=== PATIENT | male | born 2005 | race Two or more races ===

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

== ENCOUNTER 2024-12-16 12:08 | Emergency (ER) | payer OTHER, SELFPAY ==
--- NOTE | ~2024-12-16 | XR_ITS ---
CLINICAL HISTORY: laceration with axe Two views of the left tibia and fibula. COMPARISON: None provided. FINDINGS: Tibia and fibula appear intact. Visualized portions of the left knee and ankle are unremarkable. No radiopaque foreign body. IMPRESSION: 1. No radiographic evidence of acute injury to the left tibia and fibula. No radiopaque foreign body. This document has been electronically signed by: Manpreet Tavarez MD on 12/16/2024 13:19:21
[2024-12-16 12:21] VITALS: BP 123/69; PULSE 89; RESP 16; TEMP 36.4; O2SAT 96; BMI 23.5
--- NOTE | 2024-12-16 12:24 | ED.GENADULT ---
HPI - General Adult General Chief complaint: Wound/Laceration Stated complaint: left leg laceration from axe needs stitches Time Seen by Provider: 12/16/24 12:38 Source: patient, family (Mother), RN notes reviewed and old records reviewed Mode of arrival: ambulatory Limitations: no limitations History of Present Illness ED Provider: Lauri HPI narrative: Patient is a 19-year-old male presenting to the emergency department with complaint of laceration to left lower leg. He states he was using an ax to chop up a down tree branch prior to arrival when he accidentally hit his left leg. Last Tdap 2015. Complains of moderate pain, denies any numbness or tingling. Bleeding controlled. complaint: laceration Onset (ago): minute(s) Related Data Previous Rx's ?Medication ?Instructions ?Recorded cyproheptadine 4 mg tablet 4 mg PO BEDTIME #30 tabs 08/12/22 Allergies Allergy/AdvReac Type Severity Reaction Status Date / Time No Known Allergies Allergy Verified 12/16/24 12:23 Review of Systems Review of Systems: as per hpi Yes all other systems are reviewed and are negative Constitutional: Constitutional: Reports as per HPI [facility] Past Medical History Medical History (Updated 12/16/24 @ 14:00 by Елена Carreon NP) Adjustment disorder Chronic abdominal pain Surgical History No pertinent past surgical history Family History Family History Mother No problems noted. Father No problems noted. Social History Social History (Updated 08/16/22 @ 13:12 by Porsche Nassar MA) Household Members: Family Both parents involved: Yes Caregiver staying overnight: No Housing: Apartment Are you a primary animal care service worker to a significant other at home: No Do you presently have visiting nurse or other home services: No 75 years or older and lives alone: No Cognitive needs: No Hearing needs: No Vision needs: No Physical Exam ED Vital Signs: Vital Signs - 24 hr 12/16/24 12:21 12/16/24 14:07 Temperature 97.5 F 97.5 F Pulse Rate 89 89 Respiratory Rate 16 16 Blood Pressure 123/69 123/69 Pulse Oximetry 96 96 Oxygen Delivery Method Room Air Room Air BMI result Body Mass Index 23.5 Vital signs have been reviewed and appear to be correct. Blood pressure normal. Heart rate normal. Respiratory rate normal. Temperature normal. Oxygen saturation normal. Const General: cooperative, healthy appearing and no acute distress Orientation/consciousness: oriented to person, oriented to place, oriented to time and patient oriented x3 Limitations: no limitations HENMT Head: Yes normocephalic and Yes atraumatic Ears: external ears normal General nose exam: Normal external nose present Face and sinus: Yes face symmetric Mouth: oropharynx normal and moist mucous membranes Throat: Yes uvula midline Eyes Pupils: Equal, round and reactive pupils present Neck Neck: Yes normal visual inspection and Yes supple Resp Effort & Inspection: normal respiratory effort and able to speak in complete sentences Auscultation: clear to auscultation bilaterally Cardio Rate: regular rate Rhythm: regular rhythm Heart sounds: S1 normal heart sound present and S2 normal heart sound present Skin General skin exam: elasticity normal and turgor normal Neuro General: oriented to person, oriented to place, oriented to time, patient oriented x3, moves all extremities, no focal motor deficits and CN's II-XI intact bilaterally Cranial nerves: Yes Equal, round and reactive pupils present Cognition (Neuro): normal cognition Extrem General: Yes full ROM, Yes no pedal edema and Yes no calf tenderness Left lower extremity: lower leg Details: laceration distal lower leg anterior Details: linear (4cm) and involving subcutaneous tissue; not contaminated Psych Mental Status: mental status grossly normal Affect: normal affect Thought process: Normal thought process present Course Course Course Narrative: RME: 19 yold male presents to the ED left wilkinson laceration caused by axe. wilkinson laceration bleeding controlled and will need stiches. no bone exposure. uptdoate with tetanus Medications Administered Discontinued Medications Generic Name Dose Route Start Last Admin Trade Name Freq PRN Reason Stop Dose Admin Acetaminophen 650 mg 12/16/24 12:33 12/16/24 12:41 Acetaminophen 325 Mg Tablet PO 12/16/24 12:34 650 mg ONCE ONE Administration Bacitracin 1 appl 12/16/24 12:51 12/16/24 12:58 Bacitracin Oint 0.9 Gm Packet TOPICAL 12/16/24 12:52 1 appl ONCE ONE Administration Protocol Diphtheria/Tetanus/Acell Pertussis 0.5 ml 12/16/24 12:51 12/16/24 12:58 Diphth,Pertus(Acell),Tet Adult 0.5 Ml Syringe IM 12/16/24 12:52 0.5 ml .ONCE ONE Administration Lidocaine HCl 10 ml 12/16/24 12:51 12/16/24 12:58 Lidocaine Hcl 1 % Mpf 5 Ml Vial INFILTRATI 12/16/24 12:52 10 ml ONCE ONE Administration Procedures Laceration Laceration 1: Site: lower extremity Side (If applicable): left Size (cm): 4 Description: linear Depth: simple, single layer Local Anesthetic: lidocaine 1% Amount of anesthesia used (mL): 6 Pre-repair: wound explored, irrigated extensively and deep structures intact Skin layer closed with: other (prolene) Size (cm): 4-0 Number of sutures: 8 Technique: simple, interrupted Medical Decision Making Medical Decision Making [facility] Narrative: Patient is a 19-year-old male presenting to the emergency department with complaint of laceration to left lower leg. On exam patient is awake, A+Ox3, VS WNL, afebrile, normal neurological exam without focal deficits, physical exam findings as above. Given reported symptoms and physical exam findings, initial differential includes but is not limited to laceration, fracture, foreign body. X-ray notable for no tibial fracture. My interpretation is in agreement with the radiologist's interpretation. Tdap updated. Laceration repaired as per procedure note. Patient tolerated procedure well. Wound care instructions and return precautions discussed at bedside. Patient verbalized understanding of and agreement with plan. Differential Diagnosis Differential Diagnoses: The differential diagnosis associated with the presentation includes As per [facility] Admission/Observation Consideration of admission/observation: Escalation of care including admission/observation considered Patient would have been admitted to the hospital had their work up had any findings where hospital admission was appropriate and their clinical presentation warranted hospital admission. Independent Interpretation I performed an independent interpretation of an: Plain X-Ray Interpretation: No fracture of left tibia on x-ray Radiology Impression Discussion of test interpretation with radiology: I have reviewed the radiologist's reading. Radiologist Impression: Two views of the left tibia and fibula. COMPARISON: None provided. FINDINGS: Tibia and fibula appear intact. Visualized portions of the left knee and ankle are unremarkable. No radiopaque foreign body. IMPRESSION: 1. No radiographic evidence of acute injury to the left tibia and fibula. No radiopaque foreign body. External Record Review External record reviewed: Inpatient record, Office record and Outpatient record Discharge Plan Discharge Clinical Impression: Laceration of left lower leg Qualifiers: Encounter type: initial encounter Qualified Code(s): S81.812A - Laceration without foreign body, left lower leg, initial encounter Patient Disposition: Home, Self-Care Instructions: Care For Your Stitches (DC), Laceration (DC), Stitches Removal (ED) Additional Instructions: You have been evaluated in the emergency department today for a laceration to your left lower leg. Your laceration was repaired in the emergency department with sutures (8). Please keep the area surrounding the laceration clean and dry and keep dressing in place for the next 24 hours. After that change the dressing and assess the wound daily. Do not submerge the wound in water until the stitches have been removed and the wound has fully healed (no washing dishes, swimming, hot tubs, etc. and ESPECIALLY no outdoor water). Keep the area out of direct sunlight for the next 6 months to help prevent scarring. You should have the sutures removed in 7-10 days. If you develop fever, redness, swelling at the site of your laceration, or thick yellow drainage please come back to the ER for a wound check. Prescriptions: No Action cyproheptadine 4 mg tablet 4 mg PO BEDTIME Qty: 30 0RF Stand Alone Forms: Work/School Release Interventions: ED Discharge Assessment Last Done: 12/16/24 14:07 Discharge Date/Time: 12/16/24 14:07 Print Language: Iranian
[2024-12-16] MEDS: Acetaminophen 325 MG TABLET 650 MG PO (12:41)
[2024-12-16] MEDS: Lidocaine HCl 1 % MPF 5 ML VIAL 10 ML INFILTRATI (12:58)
[2024-12-16] MEDS: Diphth,Pertus(ACell),Tet Adult 0.5 ML SYRINGE IM (12:58)
[2024-12-16] MEDS: Bacitracin Oint 0.9 GM PACKET 1 APPL TOPICAL (12:58)
[2024-12-16 14:07] VITALS: BP 123/69; PULSE 89; RESP 16; TEMP 36.4; O2SAT 96
== END 2024-12-16 14:07 | disposition home or self-care (01) ==
PROVIDERS: Emergency Provider Emergency Medicine
DX: S81.812A Laceration without foreign body, left lower leg, initial encounter (principal); M79.605 Pain in left leg; X58.XXXA Exposure to other specified factors, initial encounter; W26.9XXA Contact with unspecified sharp object(s), initial encounter; Y93.9 Activity, unspecified; Y92.9 Unspecified place or not applicable; Y99.8 Other external cause status; Z23 Encounter for immunization
CPT/HCPCS: 12032; 73590; 90471; 90715; 99283; 99284; J2003

== ENCOUNTER → 2024-12-16 12:51 | Outpatient (BNV) | payer OTHER, SELFPAY | PROVIDERS: Emergency Provider Emergency Medicine; Visit Provider Radiology Diagnostic Radiology | DX: S81.812A Laceration without foreign body, left lower leg, initial encounter (principal) | CPT/HCPCS: 73590 ==

== ENCOUNTER 2024-12-27 19:05 | Emergency (ER) | payer OTHER, SELFPAY ==
[2024-12-27 19:06] VITALS: BP 134/71; PULSE 78; RESP 16; TEMP 36.2; O2SAT 98; BMI 23.5
--- NOTE | 2024-12-27 19:25 | ED.GENADULT ---
HPI - General Adult General Chief complaint: Wound/Laceration Stated complaint: stitiches removed Time Seen by Provider: 12/27/24 19:13 Source: patient Mode of arrival: ambulatory Limitations: no limitations History of Present Illness ED Provider: Evangelist Sandhu HPI narrative: 19-year-old male presents presents to ED for left wilkinson suture removal. Patient had sutures placed December 16. Patient denies any fever, chills, redness, pus discharge or foul odor. Patient states no physical complaints Related Data Previous Rx's ?Medication ?Instructions ?Recorded cyproheptadine 4 mg tablet 4 mg PO BEDTIME #30 tabs 08/12/22 Allergies Allergy/AdvReac Type Severity Reaction Status Date / Time No Known Allergies Allergy Verified 12/27/24 19:08 Review of Systems Review of Systems: suture removal Yes all other systems are reviewed and are negative [facility] Past Medical History Medical History (Updated 12/28/24 @ 00:02 by Galindo Boyle) Adjustment disorder Chronic abdominal pain Surgical History No pertinent past surgical history Family History Family History Mother No problems noted. Father No problems noted. Social History Social History (Updated 08/16/22 @ 13:12 by Porsche Nassar MA) Household Members: Family Housing: Apartment Are you a primary home health care worker to a significant other at home: No Do you presently have visiting nurse or other home services: No Advance Directives: No Advance Directives Information Provided: No Do you have a plan to hurt others: No Plan Cognitive needs: No Hearing needs: No Vision needs: No Physical Exam ED Vital Signs: Vital Signs - 24 hr 12/27/24 19:06 12/27/24 19:42 Temperature 97.2 F 97.2 F Pulse Rate 78 78 Respiratory Rate 16 16 Blood Pressure 134/71 134/71 Pulse Oximetry 98 98 Oxygen Delivery Method Room Air Room Air BMI result Body Mass Index 23.5 Const General: cooperative, healthy appearing, comfortable, no acute distress, well developed, alert, awake and Physically active Orientation/consciousness: patient oriented x3 HENMT Head: Yes normal to inspection, Yes No palpable skull fracture present, Yes normocephalic and Yes atraumatic Eyes General: appearance normal, both eyes and all related structures Neck Neck: Yes normal visual inspection, Yes full ROM, Yes no lymphadenopathy, Yes no meningeal signs, Yes trachea midline, Yes supple, No anterior neck swelling and No tender Chest Chest palpation & inspection: normal inspection of the chest and normal palpation of entire chest wall Resp Effort & Inspection: normal respiratory effort and able to speak in complete sentences Auscultation: clear to auscultation bilaterally Cardio Jugular venous distension: no JVD Heart sounds: S1 normal heart sound present and S2 normal heart sound present GI Inspection: Yes normal to inspection Palpation (GI): Soft to palpation, not firm, nontender, no guarding and not rigid General: Yes no CVA tenderness Back/Spine/Pelvis Back: no CVA tenderness and No back tenderness Neuro General: patient oriented x3, gait normal, tone normal, moves all extremities, Normal light touch and pain sensation, no meningeal signs, no focal motor deficits, CN's II-XI intact bilaterally and normal sensation to monofilament Extrem General: Yes normal to inspection, Yes full ROM and Yes capillary refill normal Upper/lower leg/hip images:  1. Eight sutures wound healing correctly. Negative for any erythema, foul odor, pus discharge, ecchymosis, crepitus, or deformity. Rest of extremity normal. Motor/neuro/vascular exam intact. Psych Appearance: grossly normal, well kempt and not disheveled Medical Decision Making Medical Decision Making [facility] Narrative: 19-year-old male presents to ED for suture removal. Sutures are healthy. Sutures removed. Cleaned with normal saline Betadine iodine. It sutures removed. No signs of infection. Patient explained worrisome signs and informed to return to the ED immediately. Differential Diagnosis Differential Diagnoses: The differential diagnosis associated with the presentation includes (Suture removal) Admission/Observation Consideration of admission/observation: Escalation of care including admission/observation considered Independent Historian Clinical information obtained from an independent historian. History obtained from or confirmed by: Other (Patient i) Discharge Plan Discharge Clinical Impression: Encounter for removal of sutures Patient Disposition: Home, Self-Care Instructions: Stitches Removal (ED) Additional Instructions: Return to the ED immediately for any swelling, redness, bluish black discoloration, fever, chills, or any other concerning symptoms. Recommend follow up with primary care provider. Prescriptions: No Action cyproheptadine 4 mg tablet 4 mg PO BEDTIME Qty: 30 0RF Interventions: ED Discharge Assessment Last Done: 12/27/24 19:42 Discharge Date/Time: 12/27/24 19:42 Print Language: Romanian
[2024-12-27 19:42] VITALS: BP 134/71; PULSE 78; RESP 16; TEMP 36.2; O2SAT 98
== END 2024-12-27 19:42 | disposition home or self-care (01) ==
PROVIDERS: Emergency Provider Emergency Medicine
DX: Z48.02 Encounter for removal of sutures (principal)
CPT/HCPCS: 99282

== ENCOUNTER 2025-03-06 13:56 | Emergency (ER) | payer OTHER, SELFPAY ==
--- NOTE | 2025-03-06 13:56 | ECG_ITS ---
Test Reason : CHEST PAIN Blood Pressure : */* mmHG Vent. Rate : 83 BPM Atrial Rate : 83 BPM P-R Int : 130 ms QRS Dur : 84 ms QT Int : 332 ms P-R-T Axes : 27 42 17 degrees QTcB Int : 390 ms Normal sinus rhythm Normal ECG No previous ECGs available Referred By: Gina Ferguson Electronically Signed By: SINA DORSEY MD
[2025-03-06 14:01] VITALS: BP 132/62; PULSE 85; RESP 18; TEMP 36.6; O2SAT 98; BMI 23.5
--- NOTE | 2025-03-06 14:02 | ED_ITS ---
HPI - Chest Pain General Chief Complaint: Chest Pain Stated Complaint: cp Time Seen by Provider: 03/06/25 15:45 Source: patient Mode of arrival: ambulatory History of Present Illness ED Provider: Mechelle MAR narrative: 19-year-old male with history of intermittent, short episodes of sharp central left chest pain not associated with dizziness/diaphoresis or nausea or vomiting, does not change with exertion status and does not change with position, no history of fevers, chills, nausea or vomiting, family history is negative for early cardiac . Patient is completely asymptomatic at this time. Related Data Previous Rx's ?Medication ?Instructions ?Recorded cyproheptadine 4 mg tablet 4 mg PO BEDTIME #30 tabs Allergies Allergy/AdvReac Type Severity Reaction Status Date / Time No Known Allergies Allergy Verified 03/06/25 14:02 Review of Systems 2 Review of Systems: Pertinent positives and negatives as stated in [facility] Past Medical History Attestation statement: The following information was validated with the patient. Source: nursing notes reviewed Medical History (Updated 03/06/25 @ 16:36 by Aliya Min MD) Adjustment disorder Chronic abdominal pain Surgical History No pertinent past surgical history Family History Family History Mother No problems noted. Father No problems noted. Social History Social History (Updated 08/16/22 @ 13:12 by Porsche Nassar MA) Household Members: Family Housing: Apartment Are you a primary director of primary care to a significant other at home: No Do you presently have visiting nurse or other home services: No Advance Directives: No Advance Directives Information Provided: Yes Do you have a plan to hurt others: No Plan Cognitive needs: No Hearing needs: No Vision needs: No Physical Exam 2 Exam: Exam: VITAL SIGNS: Reviewed. GENERAL: Well developed, well nourished, in no acute distress. HEAD: Normocephalic/atraumatic EYES: PERRLA, EOMI EARS: Ext canals without abnormality NOSE: Nares patent bilateral OROPHARYNX: no oral lesions noted, posterior pharynx clear NECK: Supple, no adenopathy LUNGS: Normal breath sounds. No adventitious sounds or accessory muscle use. CARDIOVASCULAR: Regular rate and rhythm without noted murmurs ABDOMEN: Soft, non-tender, non-distended with bowel sounds. MUSCULOSKELETAL: No tenderness, deformities, or effusions noted on gross inspection. EXTREMITIES: No cyanosis, clubbing or edema. SKIN: Inspection of the skin reveals no rashes NEUROLOGIC: Alert and oriented x 4. Strength and sensation to light touch were grossly intact x 4. Vital Signs: Vital Signs: Last Vital Signs Temp 98.2 F 03/06/25 16:20 Pulse 94 03/06/25 16:20 Resp 18 03/06/25 16:20 BP 124/67 03/06/25 16:20 Pulse Ox 99 03/06/25 16:20 O2 Del Method Room Air 03/06/25 16:20 BMI result Body Mass Index 23.5 Course Course Course Narrative: This is a Rapid Medical Examination (RME) performed by Tristan Ferguson PA-C in triage. Full HPI, ROS, assessment and treatment plan per primary provider in the Main ED. Hx: 19 yo M here w/ 11/03 chest pain that began approx 15 mins ago while at work. reports cp intermittent x a few months. BP recently elevated. Plan: labs, ekg Medical Decision Making Medical Decision Making [facility] Narrative: 19-year-old male with history and clinical presentation, DD DX: Musculoskeletal, very low clinical suspicion for ACS or pulmonary, no clinical suspicion for pericarditis/myocarditis, patient is otherwise well appearing/nontoxic and otherwise hemodynamically stable and completely asymptomatic at this time. My interpretation of the EKG: Sinus rhythm, HR-83, no STEMI, WI/QRS/QTC/QTC is otherwise within normal limits. There are no concerning rhythm morphologies. 1630: I reviewed interpreted all investigations and there is no leukocytosis, anemia, or thrombocytopenia. There is no demonstrate LEANNE/electrolyte/liver enzyme derangements. Pain high sensitivity troponin is undetectable. Workup is otherwise reassuring, all results and findings discussed with the patient at bedside and he is otherwise discharged home in stable condition. Differential Diagnosis Differential Diagnoses: The differential diagnosis associated with the presentation includes See above Admission/Observation Consideration of admission/observation: Escalation of care including admission/observation considered See above Lab Data [facility] Lab Attestation statement: I reviewed the patient's lab results. See above 03/06/25 14:23 03/06/25 14:23 Labs: Lab Results 09/10/25 Range/Units 14:23 WBC 7.0 (4.8-10.8) X10*3/uL RBC 4.76 (4.60-5.80) X10*6/uL Hgb 14.6 (14.0-18.0) g/dl Hct 40.8 L (42.0-52.0) % MCV 85.7 (80.0-98.0) fL MCH 30.7 (27.0-33.0) pg MCHC 35.8 (31.0-36.0) g/dl RDW 11.7 (11.0-16.0) % Plt Count 267 (160-400) X10*3/uL MPV 8.3 L (9.4-12.4) fL Immature Gran % (Auto) 0.3 (0.0-0.4) % Neut % (Auto) 61.0 (45-73) % Lymph % (Auto) 25.9 (20-40) % [place] % (Auto) 10.7 (2-11) % Eos % (Auto) 1.4 (0-4) % Baso % (Auto) 0.7 (0-2) % Lymph # (Auto) 1.8 (1.2-4.9) X10*3/uL [place] # (Auto) 0.8 (0.1-1.2) X10*3/uL Eos # (Auto) 0.1 (0.0-0.4) X10*3/uL Baso # (Auto) 0.1 (0.0-0.2) X10*3/uL Abs Immat Gran (auto) 0.02 (0.00-0.03) X10*3/uL Absolute Neuts (auto) 4.3 (2.0-8.3) x10*3/uL Absolute Nucleated RBC 0.000 (0.0-0.012) X10*3/uL Nucleated RBC % (auto) 0.0 (0.0-0.2) /100WBC Sodium 140 (135-145) mmol/L Potassium 4.4 (3.3-5.1) mmol/L Chloride 103 (96-108) mmol/L Carbon Dioxide 29 (22-29) mmol/L Anion Gap 12 (12-20) BUN 22 H (9-16) mg/dL Creatinine 0.97 (0.5-1.4) mg/dL Estim Creat Clear Calc 113.5 Estimated GFR > 60 Random Glucose 96 (60-115) mg/dL Calcium 9.4 D (8.4-10.2) mg/dL Magnesium 2.2 (1.6-2.6) mg/dL Total Bilirubin 0.7 (0.0-1.0) mg/dL AST 30 (5-37) U/L ALT 31 (0-40) U/L Alkaline Phosphatase 68 (39-117) U/L Troponin I High Sens < 2.7 (<3.5-35.0) ng/L Total Protein 7.2 (6.5-8.0) g/dL Albumin 4.9 (3.5-5.0) g/dL Lipase 15 (8-78) U/L ABG Data Attestation ABG: I personally reviewed and interpreted this ABG as follows: Interpretation: See above Independent Interpretation I performed an independent interpretation of an: EKG Interpretation: See above Discharge Plan Discharge Clinical Impression: Atypical chest pain Patient Disposition: Home, Self-Care Instructions: Chest Pain (ED) Additional Instructions: Your workup was reassuring today. If at anytime you have associated symptoms to include dizziness or sweating or feeling short of breath you should come back to the emergency room. Prescriptions: No Action cyproheptadine 4 mg tablet 4 mg PO BEDTIME Qty: 30 0RF Print Language: Marshallese
[2025-03-06 14:28] LABS: MANUAL DIFF FLAG NO
[2025-03-06 14:29] LABS: Hematocrit 40.8 % (42.0-52.0); Hemoglobin 14.6 g/dl (14.0-18.0); Imm Gran Abs Auto 0.02 X10*3/uL (0.00-0.03); Imm Gran Pct Auto 0.3 % (0.0-0.4); Lymphocytes Absolute Auto 1.8 X10*3/uL (1.2-4.9); Mean Corpuscular HGB Conc 35.8 g/dl (31.0-36.0); Mean Corpuscular Hemoglobin 30.7 pg (27.0-33.0); Mean Corpuscular Volume 85.7 fL (80.0-98.0); NRBC Abs Auto 0.000 X10*3/uL (0.0-0.012); NRBC Pct Auto 0.0 /100WBC (0.0-0.2); Platelet Count 267 X10*3/uL (160-400); Red Blood Count 4.76 X10*6/uL (4.60-5.80); White Blood Count 7.0 X10*3/uL (4.8-10.8)
[2025-03-06 14:51] LABS: Alanine Aminotransferase 31 U/L (0-40); Albumin Level 4.9 g/dL (3.5-5.0); Alkaline Phosphatase 68 U/L (39-117); Anion Gap 12 (12-20); Aspartate Amino Transferase 30 U/L (5-37); Blood Urea Nitrogen 22 mg/dL (9-16); Calcium 9.4 mg/dL (8.4-10.2); Carbon Dioxide 29 mmol/L (22-29); Chloride 103 mmol/L (96-108); Creatinine Clr Calc Pharmacy 113.5; Estimated Glomerular Filt Rate > 60; Lipase 15 U/L (8-78); Magnesium 2.2 mg/dL (1.6-2.6); Potassium 4.4 mmol/L (3.3-5.1); Sodium 140 mmol/L (135-145); Total Protein 7.2 g/dL (6.5-8.0)
[2025-03-06 14:56] LABS: Troponin-I High Sensitivity < 2.7 ng/L (<3.5-35.0)
[2025-03-06 16:20] VITALS: BP 124/67; PULSE 94; RESP 18; TEMP 36.8; O2SAT 99
== END 2025-03-06 16:56 | disposition home or self-care (01) ==
PROVIDERS: Physician Assistant Medical; Emergency Provider Student in an Organized Health Care Education/Training Program
DX: R07.89 Other chest pain (principal); R07.9 Chest pain, unspecified
CPT/HCPCS: 36415; 80053; 83690; 83735; 84484; 85025; 93005; 99283

== ENCOUNTER → 2025-03-06 13:56 | Outpatient (BNV) | payer OTHER, SELFPAY | PROVIDERS: Emergency Provider Student in an Organized Health Care Education/Training Program; Visit Provider Internal Medicine Cardiovascular Disease | DX: R07.89 Other chest pain (principal) | CPT/HCPCS: 93010 ==

== ENCOUNTER 2025-05-27 12:56 | Outpatient (REF) | payer OTHER, SELFPAY ==
[2025-05-27 14:10] LABS: MANUAL DIFF FLAG NO
[2025-05-27 14:42] LABS: Hematocrit 44.7 % (42.0-52.0); Hemoglobin 15.2 g/dl (14.0-18.0); Imm Gran Abs Auto 0.04 X10*3/uL (0.00-0.03); Imm Gran Pct Auto 0.5 % (0.0-0.4); Lymphocytes Absolute Auto 0.5 X10*3/uL (1.2-4.9); Mean Corpuscular HGB Conc 34.0 g/dl (31.0-36.0); Mean Corpuscular Hemoglobin 30.0 pg (27.0-33.0); Mean Corpuscular Volume 88.2 fL (80.0-98.0); NRBC Abs Auto 0.000 X10*3/uL (0.0-0.012); NRBC Pct Auto 0.0 /100WBC (0.0-0.2); Platelet Count 233 X10*3/uL (160-400); Red Blood Count 5.07 X10*6/uL (4.60-5.80); White Blood Count 7.9 X10*3/uL (4.8-10.8)
[2025-05-27 14:55] LABS: Resp Syncy Virus RNA Qual PCR NEGATIVE (Negative); SARS COV2 PCR INHOUSE NEGATIVE (Negative)
[2025-05-27 15:07] LABS: Appearance Urine Clear; Glucose Urine UA Negative (Negative); PH 6.0 (5.0-9.0); Specific Gravity - Urine 1.025 (1.005-1.025)
[2025-05-27 15:27] LABS: Alanine Aminotransferase 48 U/L (0-40); Albumin Level 5.0 g/dL (3.5-5.0); Alkaline Phosphatase 71 U/L (39-117); Anion Gap 12 (12-20); Aspartate Amino Transferase 35 U/L (5-37); Blood Urea Nitrogen 14 mg/dL (9-16); Calcium 9.3 mg/dL (8.4-10.2); Carbon Dioxide 27 mmol/L (22-29); Chloride 99 mmol/L (96-108); Cholesterol 137 mg/dL (<200); Estimated Glomerular Filt Rate > 60; HDL Cholesterol 52 mg/dL (>40); Potassium 4.0 mmol/L (3.3-5.1); Sodium 134 mmol/L (135-145); Total Protein 7.4 g/dL (6.5-8.0); Triglycerides 34 mg/dL (<150)
== END 2025-05-27 12:57 | disposition home or self-care (01) ==
LOC: HO.LAB 12:56
DX: Z76.89 Persons encountering health services in other specified circumstances (principal); J06.9 Acute upper respiratory infection, unspecified; R23.4 Changes in skin texture; R09.89 Other specified symptoms and signs involving the circulatory and respiratory systems
CPT/HCPCS: 80053; 80061; 81003; 82306; 84443; 85025; 87637; 99202

== ENCOUNTER 2025-05-27 12:56 | Outpatient (AMB) | payer OTHER, SELFPAY ==
[2025-05-27 13:02] VITALS: BP 104/58; PULSE 113; RESP 18; TEMP 38.3; O2SAT 100; BMI 24.6
--- NOTE | 2025-05-27 13:02 | MHC.PC.OV ---
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 Tower Control Operator Required: No Accompanied by: Self / Same As Patient Allergies No Known Allergies Allergy (Verified 05/27/25 13:23) Medication List - Last Reconciled 05/27/25 by AGUSTIN Hebert No Known Home Meds Tobacco use date assessed: 05/27/25 Dental Screening Dental Screen Date: 05/27/25 Did you have a dental visit in the last 12 months?: Yes Did you have a dental problem in the last 6 months where you did not have access to dental care?: No Was dental information given to patient?: Patient has dentist 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 No discoloration or swelling in the area. Patient reports that last Tuesday, his 2-year-old sister had a cough and he thinks he got sick from her He reports that Tuesday these symptoms got worse and today was barely able to get out of bed. He reports that he has been running a fever, his throat has been feeling scratchy, he had nonproductive cough body aches and felt drowsy. Patient reports taking ibuprofen for the temperature yesterday but nothing so far today. His temp in office was 100.9 F. The patient reports shortness of breath but mild in nature, however, he does report an episode where he had a really bad cough and got short of breath to the point of feeling like he was unable to catch his breath. Explained to the patient that doing coughing episodes if he is not taking good breaths, his oxygen we will be decreased and cause him to feel breathless. The patient also reports that his cough is worse during the day. [facility] Medical History Adjustment disorder Chronic abdominal pain Surgical History No pertinent past surgical history Family History Mother No problems noted. Father No problems noted. Social History Household Members: Family Both parents involved: Yes Caregiver staying overnight: No Housing: Apartment Are you a primary animal daycare provider to a significant other at home: No Do you presently have visiting nurse or other home services: No 75 years or older and lives alone: No Cognitive needs: No Hearing needs: No Vision needs: No Questionnaire MARIO-7 AMB Questionnaire MARIO-7 Date MARIO - 7 assessed: 03/23/22 Source: Developed by Drs. Kiko Long, Danitza Bennett, Americo Pelaez and colleagues, with an educational jaye from [employer]. Review of Systems Const Reports body aches, Reports fever(s), Denies headache(s) and Reports lethargy Eyes Denies loss of vision ENT Denies vertigo, Denies dizziness, Denies headache(s), Reports nasal congestion, Reports nasal discharge, Denies sore throat and Reports other (Scratchy throat) Card Denies chest pain, Denies leg edema, Denies lightheadedness and Reports dyspnea (Intermittently-mild) Resp Reports cough, Denies hemoptysis, Reports dyspnea (Intermittently-mild) and Denies wheezing GI Denies abdominal pain, Denies melena, Denies constipation, Denies diarrhea and Denies vomiting Denies dysuria, Denies urinary frequency and Denies urinary urgency Musc Denies arthralgias, Denies joint swelling, Denies numbness and Denies tingling Skin/Breast Reports other (Small indented areas) Neuro Denies Abnormal speech present, Denies behavioral changes, Denies vertigo, Denies dizziness, Denies headache(s), Denies loss of vision, Denies memory loss, Denies numbness and Denies tingling Psych Denies anxiety, Denies behavioral changes, Denies depression, Denies memory loss and Denies panic attacks Joe/Lymph Denies easy bleeding and Denies easy bruising Aller/Immun Denies wheezing Physical exam (Primary Care) Vital Signs: Last Vital Signs Temp 100.9 F H 05/27/25 13:02 Pulse 113 H 05/27/25 13:02 Resp 18 05/27/25 13:02 BP 104/58 L 05/27/25 13:02 Pulse Ox 100 05/27/25 13:02 Oxygen Delivery Method Room Air 05/27/25 13:02 BMI result Body Mass Index 24.6 Const General: healthy appearing, no acute distress, alert and awake Nutritional Appearance: well nourished Orientation/consciousness: oriented to person, oriented to place and oriented to time HENMT Ears: TM's normal bilaterally General nose exam: Abnormal mucous membranes and turbinates present boggy bilateral and erythematous bilateral and Nasal discharge present clear bilateral Throat: Yes posterior oropharynx normal Eyes Conjunctivae: conjunctivae normal Sclerae: sclerae normal Pupils: Equal, round and reactive pupils present Neck Neck: Yes no lymphadenopathy and Yes no JVD Thyroid: Thyroid normal Carotids: no bruits Resp Effort & Inspection: normal respiratory effort and not tachypneic Auscultation: no crackles, no rales, no rhonchi and no wheezes Cardio Rate: regular rate Rhythm: regular rhythm Heart sounds: no murmurs and normal S1 and S2 GI Palpation (GI): Soft to palpation, nontender, no hepatomegaly and no splenomegaly Auscultation: normal bowel sounds General: Yes no CVA tenderness Back/Spine/Pelvis Back: no CVA tenderness Skin General skin exam: dry skin and scars (Two small indented areas 1 on left upper arm and other on left upper chest) Neuro General: oriented to person, oriented to place and oriented to time Cranial nerves: Yes Equal, round and reactive pupils present Speech: No Abnormal speech present Gait exam (Neuro): Normal gait present Motor exam (neuro): no tremor noted Extrem Right upper extremity: full ROM Left upper extremity: full ROM Right lower extremity: full ROM; no edema Left lower extremity: full ROM; no edema Psych Mental Status: mental status grossly normal Speech and movement: Normal speech and movement present Affect: normal affect Attitude: cooperative Thought process: Normal thought process present Coding Level of Care Code New Pt Level 4 (86032) Diagnoses Upper respiratory tract infection, unspecified type J06.9 URI type: unspecified URI Changes in skin texture R23.4 Encounter to establish care with new provider Z76.89 Time Spent (min) 34 Assessment & Plan Assessment & Plan (1) Upper respiratory infection: Code(s): J06.9 - Acute upper respiratory infection, unspecified Category: Medical Qualifiers: URI type: unspecified URI Qualified Code(s): J06.9 - Acute upper respiratory infection, unspecified Plan: Respiratory panel ordered to further evaluate Start benzonatate 100 mg b.i.d. p.r.n. for 14 days Start fluticasone propionate 50 mcg/actuation 2 sprays intranasally daily Start loratadine 10 mg daily p.r.n. Increase fluid intake (2) Changes in skin texture: Code(s): R23.4 - Changes in skin texture Category: Medical Plan: Benign appearing, 2 small indented areas on skin, 1 on the left upper arm a 1 on the left upper chest No intervention needed (3) Encounter to establish care with new provider: Code(s): Z76.89 - Persons encountering health services in other specified circumstances Category: Medical Plan: Labs ordered for the patient to complete a week before returning for annual physical in 7 weeks Orders: Orders Lipid Panel Today Z00.00 - Encounter for general adult medical examination without abnormal findings SARS-CoV2/FLU/RSV Today R09.89 - Other specified symptoms and signs involving the circulatory and respiratory systems Complete Blood Count Auto Diff Today Z00.00 - Encounter for general adult medical examination without abnormal findings Comprehensive [place]. Panel Fast Today Z00.00 - Encounter for general adult medical examination without abnormal findings Vitamin D 25-OH Total Today Z00.00 - Encounter for general adult medical examination without abnormal findings UA CC w/rflx Micro + Cult Today Z00.00 - Encounter for general adult medical examination without abnormal findings TSH reflex Free T4 Today Z00.00 - Encounter for general adult medical examination without abnormal findings Medications: New benzonatate 100 mg PO BID PRN 30 caps 0RF cough 14 days fluticasone propionate 50 mcg/actuation (Allergy Relief (fluticasone)) administer into each nostril 2 sprays intranasal DAILY 16 grams 0RF loratadine (Claritin) 10 mg PO DAILY PRN 30 tabs 0RF allergy symptoms
== END 2025-05-27 16:14 | disposition home or self-care (01) ==
LOC: HO.HMCH 12:57
DX: J06.9 Acute upper respiratory infection, unspecified (principal); R23.4 Changes in skin texture; Z76.89 Persons encountering health services in other specified circumstances

== ENCOUNTER 2025-05-30 11:18 | Emergency (ER) | payer OTHER, SELFPAY ==
--- NOTE | ~2025-05-30 | XR_ITS ---
EXAMINATION: XR CHEST CLINICAL INFORMATION: Pnuemonia? coughing COMPARISON: None available. TECHNIQUE: 2 views of the chest were obtained. FINDINGS: Lungs: No focal consolidation or evidence of pulmonary edema. Pleura: No pleural effusion or pneumothorax. Heart/Mediastinum: Cardiomediastinal silhouette is within normal limits. Bones: No acute findings. XR/XR chest 2V IMPRESSION: No acute cardiopulmonary process. Electronically signed by: Hardik Samuels MD 05/30/2025 12:07 PM [facility]
[2025-05-30 11:20] VITALS: BP 124/78; PULSE 87; RESP 18; TEMP 36.7; O2SAT 98; BMI 23.6
--- NOTE | 2025-05-30 11:24 | ED.GENADULT ---
HPI - General Adult General Chief complaint: Upper Respiratory Symptoms Stated complaint: Shortness Of Breath Time Seen by Provider: 05/30/25 11:47 Source: patient Mode of arrival: ambulatory Limitations: no limitations History of Present Illness ED Provider: DR. Adamson HPI narrative: 20-year-old male otherwise healthy recently diagnosed with flu A returned today for evaluation of increased coughing and shortness of breath with persistent fever, persistent of body ache and sore throat. No lower extremity swelling or tenderness, no recent travel, no risk for PE or DVT. Related Data Previous Rx's ?Medication ?Instructions ?Recorded benzonatate 100 mg capsule 100 mg PO BID PRN cough 14 days 05/27/25 #30 caps fluticasone propionate 50 2 spray intranasal DAILY #16 grams 05/27/25 mcg/actuation nasal spray,suspension (Allergy Relief (fluticasone)) loratadine 10 mg tablet (Claritin) 10 mg PO DAILY PRN allergy 05/27/25 symptoms #30 tabs albuterol sulfate 90 mcg/actuation 1 inh inhalation QID PRN shortness 05/30/25 aerosol inhaler (Ventolin HFA) of breath or wheezing #8.5 grams prednisone 20 mg tablet 20 mg PO BID #10 tabs 05/30/25 Allergies Allergy/AdvReac Type Severity Reaction Status Date / Time No Known Allergies Allergy Verified 05/30/25 11:23 Review of Systems Review of Systems: All other systems are reviewed and are negative Constitutional: Reports as per HPI and Reports no additional constitutional complaints Eyes: Reports as per HPI and Reports no additional eye complaints Reports system reviewed and no additional complaints, except as documented Cardiovascular: Reports as per HPI and Reports no additional cardiovascular complaints Respiratory: Reports as per HPI and Reports no additional respiratory complaints Gastrointestinal: Reports as per HPI and Reports no additional gastrointestinal complaints Genitourinary: Reports no additional female genitourinary complaints Musculoskeletal: Reports no additional musculoskeletal complaints Skin/Breast: Reports system reviewed and no additional complaints, except as docu Psychiatric: Reports no additional psychiatric complaints Endocrine: Reports no additional endocrine complaints Hematologic/Lymphatic: Reports no additional hematologic/lymphatic complaints Allergic/Immunologic: Reports no additional allergic/immunologic complaints Reports system reviewed and no additional complaints, except as documented and Reports Abnormal speech present PMFSH Past Medical History Medical History Adjustment disorder Chronic abdominal pain Surgical History No pertinent past surgical history Family History Family History Mother No problems noted. Father No problems noted. Social History Social History Household Members: Family Housing: Apartment Are you a primary nanny caregiver to a significant other at home: No Do you presently have visiting nurse or other home services: No Advance Directives: No Advance Directives Information Provided: Yes Cognitive needs: No Hearing needs: No Vision needs: No Physical Exam ED Vital Signs: Vital Signs - 24 hr 05/30/25 11:20 Temperature 98.1 F Pulse Rate 87 Respiratory Rate 18 Blood Pressure 124/78 Pulse Oximetry 98 Oxygen Delivery Method Room Air BMI result Body Mass Index 23.6 Vital signs have been reviewed and appear to be correct. Blood pressure elevated. Heart rate normal. Respiratory rate normal. Temperature normal. Oxygen saturation normal. Appearance: Alert. Oriented X3. No acute distress. Head: Normal external exam. Normocephalic. Atraumatic. No Delgado signs noted. No raccoon eyes noted Eyes: PERRLA. EOMI. Conjunctiva and sclera normal. Eyelids normal. ENT: TM's Normal. Pharynx normal. Uvula midline. Moist mucous membranes. No trismus noted. No drooling noted. No muffled voice noted. Neck: Normal inspection. Neck supple. FROM. No adenopathy. Thyroid Normal. No meningeal signs. No neck mass noted. CVS: Normal heart rate and rhythm. Heart sound normal. No murmurs noted. Pulses normal throughout. Respiratory: No respiratory distress. Painless inspiration. Breath sounds normal. No wheezes/rales/rhonchi noted. Chest nontender. No accessory muscle usage noted or decreased air movement noted. Abdomen: Soft and nontender. Bowel sounds normal in all 4 quadrants. No distention noted. No organomegaly noted. No visible injury noted. Back: No CVA tenderness. Full range of motion noted. Skin: Skin warm and dry. Normal skin color. Normal skin turgor. No rashes/lesions/lacerations noted. Extremities: No lower extremity edema. Extremities exhibit normal range of motion. Extremities nontender. Neuro: Oriented X 3. Cranial nerve exam: II-XII are grossly intact No motor deficit. No sensory deficit. Reflexes normal. Course Course Course Narrative: RME: 20-year-old male tested positive for flu on Tuesday by primary care provider presents to the ED for shortness of breath. Patient is well-appearing. Vital signs stable. Chest x-ray ordered. Reevaluation(s) Reevaluation #1: Viral bronchitis secondary to a flu A. Start on prednisone and bronchodilator. Chest x-ray showed no acute pneumonia no indication for antibiotic at this point, otherwise stable vital signs and O2 sat. Time: 12:03 Medications Administered Discontinued Medications Generic Name Dose Route Start Last Admin Trade Name Freq PRN Reason Stop Dose Admin Acetaminophen 975 mg 05/30/25 11:50 05/30/25 11:55 Acetaminophen 325 Mg Tablet PO 05/30/25 11:51 975 mg ONCE ONE Administration Albuterol Sulfate 5 mg/ 0 mg 05/30/25 12:13 05/30/25 12:15 Albuterol/Ipratropium 3 ml INHALE 05/30/25 12:14 1 each ONCE ONE Administration Prednisone 40 mg 05/30/25 11:59 05/30/25 12:04 Prednisone 20 Mg Tablet PO 05/30/25 12:00 40 mg ONCE ONE Administration Medical Decision Making Differential Diagnosis Differential Diagnoses: The differential diagnosis associated with the presentation includes (Pneumonia, pneumothorax, pleural effusion, bronchitis, bronchopneumonia, viral bronchitis.) Admission/Observation Consideration of admission/observation: Escalation of care including admission/observation considered Independent Interpretation I performed an independent interpretation of an: Plain X-Ray (Chest: No acute intrathoracic pathology.) Radiology Impression Discussion of test interpretation with radiology: I have reviewed the radiologist's reading. Discharge Plan Discharge Clinical Impression: Influenza A, Bronchitis Patient Disposition: Home, Self-Care Instructions: Influenza (ED) Additional Instructions: Self quarantine until or your symptoms resolve. Wear face mask at all times. Keep social distance. Frequent hand washing. Use the medicine as instructed. Seek medical attention if worsening of your symptoms. Prescriptions: New prednisone 20 mg tablet 20 mg PO BID Qty: 10 0RF albuterol sulfate [Ventolin HFA] 90 mcg/actuation HFA aerosol inhaler 1 inh inhalation QID PRN (Reason: shortness of breath or wheezing) Qty: 8.5 0RF No Action fluticasone propionate [Allergy Relief (fluticasone)] 50 mcg/actuation spray,suspension 2 spray intranasal DAILY Qty: 16 0RF Rx Instructions: administer into each nostril loratadine [Claritin] 10 mg tablet 10 mg PO DAILY PRN (Reason: allergy symptoms) Qty: 30 0RF benzonatate 100 mg capsule 100 mg PO BID PRN (Reason: cough) 14 Days Qty: 30 0RF Stand Alone Forms: Work/School Release Interventions: ED Discharge Assessment Last Done: 05/30/25 12:49 Discharge Date/Time: 05/30/25 12:50 Print Language: Hungarian
[2025-05-30] MEDS: Albuterol Sulfate 5 MG, Albuterol/Iprat 2.5/0.5MG 3 ML 3 ML INHALE (12:15)
[2025-05-30 12:22] VITALS: PULSE 82; RESP 22; O2SAT 100
[2025-05-30 12:49] VITALS: BP 124/78; PULSE 82; RESP 22; TEMP 36.8; O2SAT 97
== END 2025-05-30 12:50 | disposition home or self-care (01) ==
PROVIDERS: Emergency Provider Emergency Medicine
DX: J10.1 Influenza due to other identified influenza virus with other respiratory manifestations (principal); R06.02 Shortness of breath; F43.20 Adjustment disorder, unspecified; R10.9 Unspecified abdominal pain; G89.29 Other chronic pain
CPT/HCPCS: 71046; 94640; 99283; 99284

== ENCOUNTER → 2025-05-30 11:23 | Outpatient (BNV) | payer OTHER, SELFPAY | PROVIDERS: Emergency Provider Emergency Medicine; Visit Provider Radiology Body Imaging | DX: J18.9 Pneumonia, unspecified organism (principal) | CPT/HCPCS: 71046 ==